=== PATIENT | male | born 2000 | race Caucasian/White ===

== ENCOUNTER 2022-05-21 04:01 | Emergency (ER) | payer MEDICAID ==
[~2022-05-21] VITALS: Ht 185.4 cm; Wt 58.4 kg
[2022-05-21 06:29] LABS: BASOPHILS % 0.2 % (0.0-2.0); HEMATOCRIT. 35.5 % (42.0-52.0); HEMOGLOBIN. 12.3 g/dL (14.0-18.0); LYMPHOCYTES % 15.3 % (20.0-50.0); MEAN CORPUSCULAR HEMOGLOBIN 29.9 pg (28.0-32.0); MEAN CORPUSCULAR VOLUME 86.3 fL (80.0-94.0); MEAN PLATELET VOLUME 8.8 fl (7.4-10.4); MONOCYTES % 5.8 % (2.0-8.0); NEUTROPHILS % 78.7 % (40.0-76.0); PLATELET 176 x1000/uL (130-400); RED BLOOD CELL COUNT 4.11 mill/uL (4.7-6.1); RED CELL DISTRIBUTION WIDTH 13.8 % (11.6-14.6)
[2022-05-21 06:39] LABS: CLARITY URINE CLEAR (CLEAR); COLOR URINE YELLOW (YELLOW); KETONES URINE NEGATIVE (NEGATIVE); LEUKOCYTE ESTERASE URINE NEGATIVE (NEGATIVE); NITRITE URINE NEGATIVE (NEGATIVE); OCCULT BLOOD URINE NEGATIVE (NEGATIVE); PH URINE 5.5 (4.5-8.0); PROTEIN URINE NEGATIVE (NEGATIVE); SPECIFIC GRAVITY URINE 1.018 (1.005-1.030)
[2022-05-21 06:47] LABS: CHLORIDE 104 mEq/L (98-107)
[2022-05-21] MEDS ORDERED: METOCLOPRAMIDE HCL 10MG/2ML VIAL IV ONE (07:00)
[2022-05-21] MEDS ORDERED: KETOROLAC 15MG/ML VIAL IV ONE (07:00)
[2022-05-21 07:10] VITALS: BP 118/56
== END 2022-05-21 08:36 | disposition home or self-care (01) ==
LOC: ER 04:01
DX: G43.909 Migraine, unspecified, not intractable, without status migrainosus (principal); D50.9 Iron deficiency anemia, unspecified
CPT/HCPCS: 36415; 70450; 80053; 81003; 85025; 85651; 96374; 96375; 99284; J1885; J2765; Z7610